=== PATIENT | female | born 1975 | race Hispanic/Latino ===

== ENCOUNTER 2024-12-16 06:11 | Emergency (ER) | payer OTHER ==
[~2024-12-16] VITALS: Ht 160 cm; Wt 108.0 kg
[2024-12-16] MEDS ORDERED: HYDROCHLOROTHIA25 MG PO (06:29)
[2024-12-16] MEDS ORDERED: FAMOTIDINE 20 MG/ 2 ML VIAL IV ONE (06:30)
[2024-12-16 06:33] LABS: BASOPHILS 1.2 % (0-2); EOSINOPHILS 8.3 % (0-6); HEMATOCRIT 43.1 % (35.0-50.0); HEMOGLOBIN 14.8 g/dL (12.0-18.0); LYMPHOCYTES 34.1 % (24-44); MCH 31.3 (27-36); MCHC 34.3 g/dl (30-36); MCV 91.4 fl (81-99); MONOCYTES 8.2 % (0-12); NEUTROPHILS 48.2 % (39-80); PLATELET COUNT 271 K/uL (140-440); RBC 4.72 M/ul (4.3-5.7); RDW 12.9 (10.5-15.0)
[2024-12-16 06:48] LABS: ALBUMIN 4.1 g/dL (3.4-5.0); ALBUMIN/GLOBULIN RATIO 1.03 (1.1-2.4); ANION GAP 13.4 (7-21); BILIRUBIN, TOTAL 0.3 ng/dL (0.2-1.0); CALCIUM 9.5 mg/dL (8.5-10.1); CREATININE, SERUM 0.75 mg/dL (0.55-1.02); POTASSIUM 3.4 mmol/L (3.5-5.1); PROTEIN, TOTAL 8.1 g/dL (6.4-8.2)
[2024-12-16 06:57] LABS: BILIRUBIN, URINE NEGATIVE (negative); BLOOD/HGB, URINE NEGATIVE (Negative); KETONE, URINE NEGATIVE (Negative); LEUK ESTERASE, URINE NEGATIVE (negative); NITRITE, URINE NEGATIVE (negative); PH, URINE 5.5 (5-7)
[2024-12-16 10:49] VITALS: BP 140/75
[2024-12-16] MEDS ORDERED: ONDANSETRON ODT8 MG PO (10:52)
== END 2024-12-16 10:55 | disposition home or self-care (01) ==
LOC: ED 06:11
PROVIDERS: Internal Medicine
DX: R10.33 Periumbilical pain (principal); R10.31 Right lower quadrant pain; K80.20 Calculus of gallbladder without cholecystitis without obstruction; I10 Essential (primary) hypertension; E66.9 Obesity, unspecified; Z79.899 Other long term (current) drug therapy
CPT/HCPCS: 36415; 74177; 80053; 81003; 83690; 84702; 84703; 85025; 99284-25; Q9967